=== PATIENT | female | born 1960 | race Caucasian/White ===

== ENCOUNTER 2017-01-24 18:16 | Observation (INO) | payer OTHER ==
[~2017-01-24] VITALS: Ht 167.6 cm; Wt 72.4 kg
[~2017-01-24 18:16] MED LIST: CYCL-36 PO
[2017-01-24 18:27] VITALS: BP 116/62; PULSE 66; RESP 18; TEMP 97.9; O2SAT 96
[2017-01-24] MEDS ORDERED: SODIUM CHLORID 0.9% 500 ML INJ 500 ML IV ONE (18:45)
[2017-01-24] MEDS ORDERED: SODIUM CHLORIDE 0.9% FLUSH 10 ML FLUSH IVF PRN (18:45)
[2017-01-24] MEDS ORDERED: NITROGLYCERIN 0.4 MG SL 25 TABS/BTL SL ONE (18:45)
[2017-01-24] MEDS ORDERED: ASPIRIN 81 MG CHEW TAB PO ONE (18:45)
[2017-01-24] MEDS ORDERED: ALUMINUM/MAGNESIUM/SIMETH 30 ML CUP PO ONE (18:45)
[2017-01-24] MEDS ORDERED: LIDOCAINE VISCOUS 2% SOLN 15 ML UDC PO ONE (18:45)
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
[2017-01-24 19:13] LABS: AUTOMATED NEUTROPHIL # 2.3 TH/MM3 (1.8-7.7); BASOPHIL % 0.5 % (0.0-2.0); EOSINOPHIL # 0.1 TH/MM3 (0-0.4); EOSINOPHIL % 2.6 % (0.0-4.0); HEMO FLAGS DIFF FINAL; LYMPH % 44.5 % (9.0-44.0); LYMPHOCYTE # 2.4 TH/MM3 (1.0-4.8); MEAN CELL VOLUME 87.1 FL (80.0-100.0); MEAN CORPUSCULAR HEMOGLOBIN 29.5 PG (27.0-34.0); MEAN CORPUSCULAR HGB CONC 33.8 % (32.0-36.0); MONO % 7.3 % (0.0-8.0); NEUT % 45.1 % (16.0-70.0); PLATELET COUNT 201 TH/MM3 (150-450); RED BLOOD COUNT 4.13 MIL/MM3 (4.00-5.30); RED CELL DISTRIBUTION WIDTH 12.6 % (11.6-17.2); WHITE BLOOD COUNT 5.2 TH/MM3 (4.0-11.0)
[2017-01-24 19:22] LABS: CHLORIDE 105 MEQ/L (98-107); POTASSIUM 3.5 MEQ/L (3.5-5.1); SODIUM (NA) 140 MEQ/L (136-145)
--- NOTE | 2017-01-24 19:22 | RADHPO ---
EXAM DATE/TIME: 01/24/2017 18:49 [facility] COMPARISON: No previous studies available for comparison. INDICATIONS : Chest pain for 24 hours MEDICAL HISTORY : None. SURGICAL HISTORY : None. ENCOUNTER: Initial ACUITY: 1 day PAIN SCORE: 3/10 LOCATION: Center of chest FINDINGS: A single view of the chest demonstrates the lungs to be symmetrically aerated without evidence of mas s, infiltrate or effusion. The cardiomediastinal contours are unremarkable. Osseous structures are intact. CONCLUSION: 1. No acute cardiopulmonary disease. Calin Combs MD on January 24, 2017 at 19:21 Board Certified Radiologist. This report was verified electronically.
[2017-01-24 19:26] LABS: ANION GAP 6 MEQ/L (5-15); BICARBONATE 28.7 MEQ/L (21.0-32.0); MAGNESIUM 2.1 MG/DL (1.5-2.5)
[2017-01-24 19:27] LABS: BLOOD UREA NITROGEN 18 MG/DL (7-18)
[2017-01-24 19:28] LABS: APTT (PATIENT) 26.7 SEC (24.3-30.1); PROTHROMBIN TIME - PATIENT 10.7 SEC (9.8-11.6)
[2017-01-24 19:29] LABS: ALT (GPT) 38 U/L (10-53); AST (GOT) 20 U/L (15-37)
[2017-01-24 19:30] LABS: GLOMERULAR FILTRATION RATE 98 ML/MIN (>89)
[2017-01-24 19:31] LABS: TOTAL BILIRUBIN ADULT 0.6 MG/DL (0.2-1.0)
[2017-01-24 19:32] LABS: ALKALINE PHOSPHATASE 59 U/L (45-117); CREATINE KINASE 122 U/L (26-192)
[2017-01-24] MEDS ORDERED: ACETAMINOPHEN 500 MG CPLT PO ONE (19:45)
[2017-01-24 19:47] VITALS: BP_SYST 112; BP_SYST 97; BP_DIAS 56; BP_DIAS 66; PULSE 64; PULSE 68; RESP 20; O2SAT 95
--- NOTE | 2017-01-24 19:57 | PD ---
Data Data Last Documented VS Vital Signs Date Time Temp Pulse Resp B/P Pulse Ox O2 Delivery O2 Flow Rate FiO2 01/24/17 19:47 96 Nasal Cannula 2 01/24/17 19:47 64 20 112/56 97/56 01/24/17 18:27 97.9 Orders Electrocardiogram (01/24/17 18:42) Ckmb (Isoenzyme) Profile (01/24/17 18:42) Complete Blood Count With Diff (01/24/17 18:42) Comprehensive Metabolic Panel (01/24/17 18:42) Magnesium (Mg) (01/24/17 18:42) Prothrombin Time / Inr (Pt) (01/24/17 18:42) Act Partial Throm Time (Ptt) (01/24/17 18:42) Troponin I (01/24/17 18:42) Lipase (01/24/17 18:42) Chest, Single Ap (01/24/17 18:42) Ecg Monitoring (01/24/17 18:42) Bilateral Bp Monitoring (01/24/17 18:42) Iv Access Insert/Monitor (01/24/17 18:42) Oximetry (01/24/17 18:42) Oxygen Administration (01/24/17 18:42) Aspirin Chew (Aspirin Chew) (01/24/17 18:45) Sodium Chloride 0.9% Flush (Ns Flush) (01/24/17 18:45) Nitroglycerin Sl (Nitrostat Sl) (01/24/17 18:45) Sodium Chlorid 0.9% 500 Ml Inj (Ns 500 M (01/24/17 18:45) Al-Mag Hy-Si 40-40-4 Mg/Ml Liq (Mag-Al P (01/24/17 18:45) Lidocaine 2% Viscous (Xylocaine 2% Visco (01/24/17 18:45) CKMB (01/24/17 19:00) CKMB% (01/24/17 19:00) Acetaminophen (Tylenol) (01/24/17 19:45) Labs Laboratory Tests Test 01/24/17 19:00 White Blood Count 5.2 TH/MM3 Red Blood Count 4.13 MIL/MM3 Hemoglobin 12.2 GM/DL Hematocrit 36.0 % Mean Corpuscular Volume 87.1 FL Mean Corpuscular Hemoglobin 29.5 PG Mean Corpuscular Hemoglobin 33.8 % Concent Red Cell Distribution Width 12.6 % Platelet Count 201 TH/MM3 Mean Platelet Volume 9.0 FL Neutrophils (%) (Auto) 45.1 % Lymphocytes (%) (Auto) 44.5 % Monocytes (%) (Auto) 7.3 % Eosinophils (%) (Auto) 2.6 % Basophils (%) (Auto) 0.5 % Neutrophils # (Auto) 2.3 TH/MM3 Lymphocytes # (Auto) 2.4 TH/MM3 Monocytes # (Auto) 0.4 TH/MM3 Eosinophils # (Auto) 0.1 TH/MM3 Basophils # (Auto) 0.0 TH/MM3 CBC Comment DIFF FINAL Differential Comment Prothrombin Time 10.7 SEC Prothromb Time International 1.0 RATIO Ratio Activated Partial 26.7 SEC Thromboplast Time Sodium Level 140 MEQ/L Potassium Level 3.5 MEQ/L Chloride Level 105 MEQ/L Carbon Dioxide Level 28.7 MEQ/L Anion Gap 6 MEQ/L Blood Urea Nitrogen 18 MG/DL Creatinine 0.63 MG/DL Estimat Glomerular Filtration 98 ML/MIN Rate Random Glucose 99 MG/DL Calcium Level 8.4 MG/DL Magnesium Level 2.1 MG/DL Total Bilirubin 0.6 MG/DL Aspartate Amino Transf 20 U/L (AST/SGOT) Alanine Aminotransferase 38 U/L (ALT/SGPT) Alkaline Phosphatase 59 U/L Total Creatine Kinase 122 U/L Creatine Kinase MB 1.0 NG/ML Troponin I LESS THAN 0.02 NG/ML Total Protein 6.6 GM/DL Albumin 3.6 GM/DL Lipase 164 U/L [facility] Medical Record Reviewed: Yes Supervised Visit with PORTIA: No Narrative Course CBC & BMP Diagram 01/24/17 19:00 LFTs normal Lipase normal tn < 0.02 EKG: sinus, rate 67, normal axis/intervals Please refer to Dr Lindsay's note for details regarding history of present illness. Upon my reassessment at 7:50 PM the patient found resting comfortably in bed. She states she has trace 1/10 intermittent right chest pain. No dyspnea. She had had a headache after receiving nitro and morphine however resolved prior to my evaluation. As had been discussed, pt will be kept for [employer] evaluation. Diagnosis Primary Impression: Chest pain Qualified Code: R07.9 - Chest pain, unspecified type Admitting Information Admitting Physician Requests: Observation Scripts No Active Prescriptions or Reported Meds Condition: Eduardo Rosne MD January 24, 2017 19:57
[2017-01-24 20:30] VITALS: BP 120/59; PULSE 68; RESP 20; O2SAT 98
[2017-01-24] MEDS ORDERED: SODIUM CHLORIDE 0.9% FLUSH 10 ML FLUSH IV FLUSH PRN (20:30)
[2017-01-24] MEDS ORDERED: SODIUM CHLORIDE 0.9% FLUSH 10 ML FLUSH SCH (21:00)
[2017-01-24 21:32] VITALS: BP 114/79
[2017-01-24 22:15] VITALS: BP 112/67; PULSE 59; RESP 18; TEMP 96.5; O2SAT 98
[2017-01-24 22:30] VITALS: O2SAT 94
[2017-01-24 22:51] LABS: CREATINE KINASE 111 U/L (26-192)
[2017-01-24 23:03] LABS: CKMB 0.9 NG/ML (0.5-3.6)
[2017-01-25] VITALS: BP 119/79; PULSE 66; RESP 16; TEMP 96.7; O2SAT 95
[2017-01-25 00:15] VITALS: PULSE 61
[2017-01-25] MEDS ORDERED: ONDANSETRON HCL 4 MG/2 ML VIAL IV PUSH PRN (01:15)
[2017-01-25] MEDS ORDERED: ACETAMINOPHEN 325 MG TAB PO ONE (01:15)
[2017-01-25 01:50] LABS: CREATINE KINASE 104 U/L (26-192)
[2017-01-25 02:03] LABS: CKMB LESS THAN 0.5 NG/ML (0.5-3.6)
[2017-01-25 04:00] VITALS: BP 115/83; PULSE 61; RESP 16; TEMP 96.8; O2SAT 95
[2017-01-25 08:00] VITALS: BP 114/78; PULSE 54; RESP 16; TEMP 98.4; O2SAT 98
--- NOTE | 2017-01-25 09:14 | HHI.HP ---
cc: Florina Valencia Jr., MD [facility] Primary [facility] Physician Florina Valencia MD Admission Diagnosis Chest Pain Diagnoses: (1) Chest pain Diagnosis: Principal Chief Complaint: chest pain Travel History International Travel<30 Days: No Contact w/Intl Traveler <30 Da: No Traveled to Known Affected Are: No History of Present Illness Written by Stephie Davey PA-C acting as scribe for Dr. Banda on 01/25/17 at 0900. 56-year-old female with history of GERD and hiatal hernia, migraines and back issues presents with complaint of chest pain. Patient states 2 nights ago she was sitting watching TV when she started spread stabbing 8-9/10 substernal pain. She states the pain lasts 1.5 hours and also radiated under her right arm and neck. States she was diaphoretic at the time. Denies any shortness of breath, nausea, vomiting. She states she took Gas-X without relief. She states no one to bed and woke up yesterday morning and still had discomfort and did not feel right and decided to come to the ER yesterday. She admits to very little tightness now. She does have a smoker's cough (uses e- cigarettes), but denies any fevers or chills. She additionally states when she works out" and playing golf she feels "overheated" in her chest. Any history of asthma or COPD. The patient saw Dr. Roach, [facility] smoking pipe mounter in April 2016 and had a treadmill stress test which was normal. She does not follow with him regularly. Review of Systems Except as stated in HPI: all other systems reviewed are Neg Past Family Social History Past Medical History Hiatal hernia, GERD, multiple endoscopies Migraines Past Surgical History Cholecystectomy Appendectomy Tubal ligation Partial hysterectomy Ovarian cyst removal Lumbar fusion Reported Medications No Active Prescriptions or Reported Medications Allergies: Coded Allergies: No Known Allergies (Verified , 01/24/17) Family History Mother and Father: Hypertension. Maternal grandfather: Diabetes Social History Patient's 14 years ago. Patient occasionally drinks alcohol. Denies illicit drug use. Quit smoking cigarettes 4-5 years ago. Smoked approximately one half pack per day. Now she uses E-cigarettes, using more frequently recently due to feeling "tense". Physical Exam Vital Signs Vital Signs Date Time Temp Pulse Resp B/P Pulse Ox O2 Delivery O2 Flow Rate FiO2 01/25/17 04:00 96.8 61 16 115/83 95 01/25/17 00:15 61 01/25/17 00:00 96.7 66 16 119/79 95 01/24/17 22:30 94 21 01/24/17 22:15 96.5 59 18 112/67 98 01/24/17 21:32 61 20 114/79 100 Nasal Cannula 2 01/24/17 21:25 20 01/24/17 20:30 68 20 120/59 98 01/24/17 20:07 20 99 01/24/17 19:47 96 Nasal Cannula 2 01/24/17 19:47 68 20 97/66 01/24/17 19:47 64 20 112/56 95 97/56 01/24/17 19:35 20 01/24/17 18:32 66 01/24/17 18:27 97.9 66 18 116/62 96 Physical Exam GENERAL: This is a well-nourished, well-developed patient, in no apparent distress. SKIN: No rashes, ecchymoses or lesions. Warm and dry. HEAD: Atraumatic. Normocephalic. EYES: No scleral icterus. No injection or drainage. ENT: Throat without erythema. Uvula midline. Airway patent. NECK: Trachea midline. CHEST: No reproducible tenderness over the anterior chest although patient indicates the discomfort is over the right chest. CARDIOVASCULAR: Regular rate and rhythm without murmurs, gallops, or rubs. RESPIRATORY: Clear to auscultation. Breath sounds equal bilaterally. No wheezes , rales, or rhonchi. GASTROINTESTINAL: Normoactive bowel sounds. Abdomen soft, non-tender, nondistended. NEUROLOGICAL: Awake and alert. Five out of 5 muscle strength in bilateral arms and legs. Normal speech. Laboratory Laboratory Tests Test 01/24/17 01/24/17 01/25/17 19:00 22:10 01:20 White Blood Count 5.2 Red Blood Count 4.13 Hemoglobin 12.2 Hematocrit 36.0 Mean Corpuscular Volume 87.1 Mean Corpuscular Hemoglobin 29.5 Mean Corpuscular Hemoglobin 33.8 Concent Red Cell Distribution Width 12.6 Platelet Count 201 Mean Platelet Volume 9.0 Neutrophils (%) (Auto) 45.1 Lymphocytes (%) (Auto) 44.5 Monocytes (%) (Auto) 7.3 Eosinophils (%) (Auto) 2.6 Basophils (%) (Auto) 0.5 Neutrophils # (Auto) 2.3 Lymphocytes # (Auto) 2.4 Monocytes # (Auto) 0.4 Eosinophils # (Auto) 0.1 Basophils # (Auto) 0.0 CBC Comment DIFF FINAL Differential Comment Prothrombin Time 10.7 Prothromb Time International 1.0 Ratio Activated Partial 26.7 Thromboplast Time Sodium Level 140 Potassium Level 3.5 Chloride Level 105 Carbon Dioxide Level 28.7 Anion Gap 6 Blood Urea Nitrogen 18 Creatinine 0.63 Estimat Glomerular Filtration 98 Rate Random Glucose 99 Calcium Level 8.4 Magnesium Level 2.1 Total Bilirubin 0.6 Aspartate Amino Transf 20 (AST/SGOT) Alanine Aminotransferase 38 (ALT/SGPT) Alkaline Phosphatase 59 Total Creatine Kinase 122 111 104 Creatine Kinase MB 1.0 0.9 LESS THAN 0.5 Troponin I LESS THAN 0.02 LESS THAN 0.02 LESS THAN 0.02 Total Protein 6.6 Albumin 3.6 Lipase 164 Result Diagram: 01/24/17 1900 01/24/17 1900 Imaging Last Impressions Myocardial Perfusion Scan Nuc Med 01/25/17 0000 Signed Impressions: Service Date/Time: January 10:56 - CONCLUSION: 1. Unremarkable myocardial perfusion scan. RISK CATEGORY: Low (<1%% Annual Mortality Rate ) Calin Combs MD Chest X-Ray 01/24/17 1842 Signed Impressions: Service Date/Time: Tuesday, January 24, 2017 18:49 - CONCLUSION: 1. No acute cardiopulmonary disease. Calin Combs MD Assessment and Plan Assessment and Plan 56-year-old female with: Chest pain: EKG #1 and #2 with nonspecific septal T wave changes. Patient has similar septal T wave inversion on 12/08/11 EKG. T waves become upright in V2 on EKG #3. Troponin 3 less than 0.02. CBC unremarkable. Chest x-ray without acute disease. -Patient received 162 mg of aspirin in the ED as well as 1 dose of nitroglycerin , viscous lidocaine, and Maalox. -Telemetry reviewed with no acute events. -Patient had treadmill stress test 10 months ago but has pain again and considering it has been almost a year will repeat stress test, but perform nuclear test due to non-specific septal T wave changes. Patient has back pain and is unable to do nuc-tread. Myocardial perfusion scan with normal EF and no evidence of ischemia. Discharge disposition: Home in fair to good condition. Diet: GERD Activity: Regular Medications: Patient advised to take [id number] GERD medications including Pepcid or Zantac and abstain from nicotine. Follow-up: PCP 1 week. Patient states she has appointment in 1 month. She is concerned about the overheating type feeling she gets in her chest with activity and she is advised to hydrate plenty and address issue with PCP. Written by Stephie Davey PA-C acting as scribe for Dr. Banda on 01/25/17 at 0900. This note was transcribed by scribe Stephie QUESADA. I, Dr. Fabi Banda personally performed the history, physical exam, and medical decision making; and confirmed the accuracy of the information in the transcribed note. Authenticated by Dr. Fabi Banda on 01/25/17 at 0900. Discussed Condition With patient Problem Qualifiers (1) Chest pain: Qualified Code: R07.9 - Chest pain, unspecified type Stephie Davey January 25, 2017 09:14 Fabi Banda MD January 25, 2017 10:23
[2017-01-25] MEDS ORDERED: REGADENOSON INJ 0.4 MG/5 ML SYR IV ONE (11:09)
[2017-01-25 12:00] VITALS: BP 110/77; PULSE 60; RESP 16; TEMP 98; O2SAT 97
--- NOTE | 2017-01-25 12:22 | RADHPO ---
EXAM DATE/TIME: 01/25/2017 10:56 [facility] COMPARISON: No previous studies available for comparison. INDICATIONS : Substernal chest pain radiating to the back for 1 day. Abnormal EKG. DOSE: 25.8 mCi Tc99m Myoview at stress. 8.1 mCi Tc99m Myoview at rest. 0.4 mg Lexiscan STRESS SYMPTOMS: Chest tightness , neck tightness, flushed and nausea, EJECTION FRACTION: 50% MEDICAL HISTORY : Hypertension. Smoker. SURGICAL HISTORY : Inguinal hernia repair. Hysterectomy. Cholecystectomy. Lumbar fusion. ENCOUNTER: Initial ACUITY: 1 day PAIN SCALE: 3/10 LOCATION: Substernal chest TECHNIQUE: The patient underwent pharmacologic stress with infusion of prescribed dose. Continuous ECG tracing was monitored during stress. Gated SPECT imaging was performed after stress and conventional SPECT i maging was performed at rest. The examination was performed on a SPECT/CT scanner, both attenuation and non-corrected datasets were reviewed. FINDINGS: DISTRIBUTION: The maximum perfused segment at stress is in the inferior wall. PERFUSION STUDY: The pattern of perfusion at stress is within normal limits. GATED STUDY: There is intact wall motion and thickening without hypokinetic or dyskinetic segments. CONCLUSION: 1. Unremarkable myocardial perfusion scan. RISK CATEGORY: Low (<1% Annual Mortality Rate) Calin Combs MD on January 25, 2017 at 12:20 Board Certified Radiologist. This report was verified electronically.
--- NOTE | 2017-01-25 12:30 | EKG ---
Date Performed: 01/25/2017 Time Performed: 00:39:26 PTAGE: 56 years EKG: Sinus rhythm Normal ECG PREVIOUS TRACING : 01/24/2017 22.03 Since previous tracing, no significant change noted DOCTOR: Calin Roach Interpretating Date/Time 01/25/2017 12:28:43
--- NOTE | 2017-01-25 12:31 | EKG ---
Date Performed: 01/24/2017 Time Performed: 18:18:56 PTAGE: 56 years EKG: Sinus rhythm . Since previous tracing, no significant change noted Borderline ECG PREVIOUS TRACING : 12/08/2011 11.04 Since previous tracing, no significant change noted DOCTOR: Calin Roach Interpretating Date/Time 01/25/2017 12:30:27
--- NOTE | 2017-01-25 12:31 | EKG ---
Date Performed: 01/24/2017 Time Performed: 22:03:52 PTAGE: 56 years EKG: Sinus bradycardia Normal ECG except for rate PREVIOUS TRACING : 01/24/2017 18.18 Since previous tracing, no significant change noted DOCTOR: Calin Roach Interpretating Date/Time 01/25/2017 12:29:49
--- NOTE | 2017-01-25 12:34 | TR ---
Date Performed: 01/25/2017 Time Performed: 11:20:26 DOCTOR: Calin Roach DRUG LIST: CLINICAL HISTORY: CHEST PAIN REASON FOR TEST: REASON FOR ENDING: OBSERVATION: CONCLUSION: Lexiscan stress test was performed under standard four minute protocol. Radionuclid e was injected one minute prior to ending the test. No electrocardiographic abormalities were present to suggest ischemia. Nuclear imaging and interpretation are pending. COMMENTS:
--- NOTE | 2017-01-25 14:32 | HHI.DCPOC ---
Discharge Care Plan Diagnosis: (1) Chest pain Your Health Problems Are: Chest Pain Goals to Promote Your Health * To prevent worsening of your condition and complications * To maintain your health at the optimal level Directions to Meet Your Goals Take your medications as prescribed Follow your dietary instruction Follow activity as directed Keep your appointments as scheduled Take your immunizations and boosters as scheduled If your symptoms worsen call your PCP, if no PCP go to Urgent Care Center or Emergency Room Smoking is Dangerous to Your Health. Avoid second hand smoke Call the 24-hour hour crisis hotline for domestic abuse at Stephie Davey January 25, 2017 14:32 Fabi Banda MD January 28, 2017 18:59
== END 2017-01-25 15:53 | disposition home or self-care (01) ==
LOC: PHED 18:16 → PHEDA 20:14 → PH3B 21:45
PROVIDERS: ADMIT Hospitalist; ATTEND Hospitalist
DX: R07.89 Other chest pain (principal); K21.9 Gastro-esophageal reflux disease without esophagitis; M54.9 Dorsalgia, unspecified; M19.90 Unspecified osteoarthritis, unspecified site; Z82.49 Family history of ischemic heart disease and other diseases of the circulatory system; Z87.891 Personal history of nicotine dependence
CPT/HCPCS: 71010; 78452; 80053; 82550; 82552; 83690; 83735; 84484; 85025; 85610; 85730; 93005; 93017; 99285; A9502; G0378; J2405; J2785; J7040